=== PATIENT | male | born 1990 | race Caucasian/White ===

== ENCOUNTER 2017-01-09 20:00 | Emergency (ER) | payer BC ==
[~2017-01-09] VITALS: Ht 185.4 cm; Wt 73.4 kg
[2017-01-09 20:02] VITALS: TEMP 36.6; Ht 185.4 cm; Wt 73.4 kg
[2017-01-09] MEDS ORDERED: SODIUM CHLORIDE 0.9% 1000ML 1,000 ML IV STA (20:19)
[2017-01-09] MEDS ORDERED: ONDANSETRON 8 MG/54 ML D5W IV STA (20:19)
[2017-01-09 20:36] LABS: BASO % 0.6 %; BASO ABS # 0.05 K/uL (0-0.2); COMPLETE YES; EOS % 1.3 %; HEMATOCRIT 43.9 % (42-52); LYMPH % 18.3 %; LYMPH ABS # 1.43 K/uL (1.2-3.4); MEAN CORPUSCULAR HEMOGLOBIN 31.7 pg (25-34); MEAN CORPUSCULAR HGB CONC 34.4 g/dl (32-36); MEAN PLATELET VOLUME 10.3 fL (7.4-10.4); MONO % 9.3 %; NEUT % 69.5 %; PLATELET COUNT 170 K/uL (130-400); RED BLOOD COUNT 4.77 M/uL (4.7-6.1); WHITE BLOOD COUNT 7.82 K/uL (4.8-10.8)
[2017-01-09] MEDS: FENTANYL CITRATE INJ 50 MCG/1 ML 2 ML VIAL IV PRN ×3 (20:53→22:03)
--- NOTE | 2017-01-09 20:53 | DIAGNOSTIC IMAGING REPORT ---
CT OF THE HEAD WITHOUT CONTRAST CLINICAL HISTORY: Trauma. COMPARISON STUDY: No previous studies for comparison. TECHNIQUE: Helical axial images of the head were obtained without IV contrast. Automated exposure control was utilized for the study. FINDINGS: No acute intracranial hemorrhage, midline shift or mass effect is present. Ventricular system is normal. Basilar cisterns are patent. There are no extra-axial collections. Denise-white differentiation is maintained. There is no calvarial fracture. There is a laceration overlying the anterior aspect of the left zygomatic arch. This is better depicted on the maxillofacial CT. Globes are intact. There is no retrobulbar hematoma. IMPRESSION: 1. No acute intracranial findings. 2. No calvarial fracture. 3. Left facial laceration, better depicted on the maxillofacial CT. Electronically signed by: Faizan Robles M.D. 01/09/2017 8:52 PM Dictated Date/Time: 01/09/2017 8:47 PM
[2017-01-09 20:58] LABS: ALT/SGPT 33 U/L (12-78); BLOOD UREA NITROGEN 23 mg/dl (7-18); BUN/CREATININE RATIO 16.6 (10-20); CARBON DIOXIDE 28 mmol/L (21-32); CHLORIDE 106 mmol/L (98-107); GLUCOSE 119 mg/dl (70-99); POTASSIUM 3.7 mmol/L (3.5-5.1); SODIUM 140 mmol/L (136-145)
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
[2017-01-09 21:03] LABS: ALKALINE PHOSPHATASE 84 U/L (45-117); AST/SGOT 39 U/L (15-37)
--- NOTE | 2017-01-09 21:09 | DIAGNOSTIC IMAGING REPORT ---
CT OF THE CERVICAL SPINE WITHOUT CONTRAST CLINICAL HISTORY: Trauma. COMPARISON STUDY: No previous studies for comparison. TECHNIQUE: Helical axial images of the cervical spine were obtained without IV contrast. Sagittal and coronal reconstructions were viewed. FINDINGS: Alignment of the cervical spine is anatomic. Vertebral body heights are maintained. Craniocervical junction is intact. There is a minimally distracted fracture of the right occipital condyle. This is distracted 2 mm. There are several bone fragments. There is no fracture within the cervical spine. There is no prevertebral edema. IMPRESSION: Mildly displaced acute avulsion fracture of the right occipital condyle suggestive of a type III occipital condyle fracture with several associated bone fragments. This is potentially unstable. Electronically signed by: Faizan Robles M.D. 01/09/2017 9:08 PM Dictated Date/Time: 01/09/2017 8:57 PM
--- NOTE | 2017-01-09 21:16 | DIAGNOSTIC IMAGING REPORT ---
CT OF THE CHEST WITHOUT IV CONTRAST CLINICAL HISTORY: Trauma COMPARISON STUDY: No previous studies for comparison. TECHNIQUE: Axial images of the chest were obtained without IV contrast. Images were reviewed in the axial, sagittal, and coronal planes. IV contrast was not administered for this examination. FINDINGS: Evaluation of the thoracic aorta is suboptimal given lack of IV contrast. However, there is no mediastinal hematoma. Gas adjacent to the left clavicle is likely venous in location. There is no pneumothorax or pulmonary contusion. No acute rib fracture is identified. There is a mild acute compression fracture of the superior endplate of T4 with minimal loss of vertebral body height and no retropulsion. No extension into the posterior elements is identified on this exam. Central canal is suboptimally assessed by CT. IMPRESSION: 1. Acute mild T4 compression fracture with loss of vertebral body height and no retropulsion. 2. No pneumothorax or pulmonary contusion. 3. No mediastinal hematoma. Electronically signed by: Faizan Robles M.D. 01/09/2017 9:15 PM Dictated Date/Time: 01/09/2017 9:08 PM
--- NOTE | 2017-01-09 21:18 | DIAGNOSTIC IMAGING REPORT ---
CT THORACIC SPINE WITHOUT CLINICAL HISTORY: TRAUMA TECHNIQUE: Axial images of the thoracic spine were obtained without IV contrast. Sagittal and coronal reconstructions were viewed. COMPARISON STUDY: None. FINDINGS: There is an acute mild compression fracture of the superior endplate of T4 with mild loss of vertebral body height and no retropulsion. There is no extension into the posterior elements. No additional acute thoracic spine fractures are identified. IMPRESSION: Acute mild T4 compression fracture with mild loss of vertebral body height and no retropulsion. Electronically signed by: Faizan Robles M.D. 01/09/2017 9:17 PM Dictated Date/Time: 01/09/2017 9:15 PM
[2017-01-09] MEDS ORDERED: XYLOCAINE 1%/SOD BICARB 20 ML VIAL INFIL ONE (21:40)
[2017-01-09 22:00] LABS: CALCIUM 9.3 mg/dl (8.5-10.1)
[2017-01-09] MEDS ORDERED: CEFAZOLIN SOD 1000MG/55 ML D5W IV STA (22:10)
[2017-01-09 22:32] VITALS: BP 151/61
[2017-01-09 22:36] VITALS: PULSE 89; O2SAT 99
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
== END 2017-01-09 23:02 | disposition short-term general hospital (02) ==
LOC: C.EDB 20:02 → C.ED 23:02
DX: S09.90XA Unspecified injury of head, initial encounter (principal); S01.81XA Laceration without foreign body of other part of head, initial encounter; S02.113A Unspecified occipital condyle fracture, initial encounter for closed fracture; S22.049A Unspecified fracture of fourth thoracic vertebra, initial encounter for closed fracture; V18.0XXA Pedal cycle driver injured in noncollision transport accident in nontraffic accident, initial encounter; Y92.828 Other wilderness area as the place of occurrence of the external cause

== ENCOUNTER → 2017-03-29 | Outpatient (CLI) | payer BC ==
--- NOTE | 2017-03-29 09:23 | DIAGNOSTIC IMAGING REPORT ---
SOFT TISS HEAD/NECK-THYROID CLINICAL HISTORY: 26 years-old Male with ABNORMAL RESULTS OF THYROID FUNCTION. COMPARISON: CT chest 01/09/2017. TECHNIQUE: Multiple real time sonographic images of the thyroid were obtained accessing oliva scale appearance and color doppler flow. FINDINGS: MEASUREMENTS: Right lobe: 5.0 x 2.6 x 2.1 cm Left lobe: 4.6 x 1.9 x 1.9 cm Isthmus: 0.7 cm PARENCHYMA: The thyroid parenchymal echotexture is markedly heterogeneous and hypervascular. NODULES: No discrete nodules are appreciated. IMPRESSION: Markedly heterogeneous and hypervascular thyroid parenchyma without discrete nodule suggests thyroiditis. Correlate with thyroid function laboratory values. The above report was generated using voice recognition software. It may contain grammatical, syntax or spelling errors. Electronically signed by: Julio Mcallister M.D. 03/29/2017 9:21 AM Dictated Date/Time: 03/29/2017 9:05 AM
== END | disposition home or self-care (01) ==
LOC: C.ULTRBC 08:40
PROVIDERS: ATTEND Physician Assistant
DX: R94.6 Abnormal results of thyroid function studies (principal)